=== PATIENT | male | born 1980 | race Caucasian/White ===

== ENCOUNTER 2017-02-05 16:19 | Emergency (ER) | payer OTHER ==
[~2017-02-05] VITALS: Ht 172.7 cm; Wt 79.4 kg
--- NOTE | 2017-02-05 16:19 | NUR ---
Patient BIBA BLS accompanied by [place] [employer], transferred to bed 4. RN evaluating patient at bedside.
[2017-02-05 16:24] VITALS: BP 122/81
--- NOTE | 2017-02-05 16:39 | NUR ---
Blood draw by forensic materials planner/production planner. Triage completed.
--- NOTE | 2017-02-05 16:56 | NUR ---
[place] [employer] Officer Cassi Rueda at bedside with patient, awaiting for medical clearance for OK to book, coordinated care with TYSON accordingly.
--- NOTE | 2017-02-05 17:15 | NUR ---
Dr. Pickens evaluating patient at bedside.
--- NOTE | 2017-02-05 17:24 | NUR ---
Medically cleared by Dr Pickens, patient released to custody of [employer] J Rueda.
[2017-02-05 18:11] VITALS: BP 115/77
--- NOTE | 2017-02-05 18:11 | NUR ---
Patient discharged with v/s stable. Written and verbal after care instructions given and explained. Patient verbalized understanding. Police with in custody. All questions addressed prior to discharge. Advised to follow up with PMD.
== END 2017-02-05 18:11 ==
LOC: MED 16:19
DX: S00.81XA Abrasion of other part of head, initial encounter (principal); V49.49XA Driver injured in collision with other motor vehicles in traffic accident, initial encounter; Y93.89 Activity, other specified; Y92.89 Other specified places as the place of occurrence of the external cause; Y99.8 Other external cause status
CPT/HCPCS: 99283